=== PATIENT | male | born 1945 | race Caucasian/White ===

== ENCOUNTER 2018-02-10 11:36 | Inpatient (IN) | payer OTHER ==
[~2018-02-10] VITALS: Ht 182.9 cm; Wt 77.1 kg
[2018-02-10] MEDS ORDERED: SODIUM CHLORIDE 0.9% 1000ML 1,000 ML IV STA (11:58)
[2018-02-10] MEDS ORDERED: SODIUM CHLORIDE 0.9% 500ML 500 ML IV STA (11:58)
[2018-02-10] MEDS ORDERED: METOPROLOL TARTRATE INJ 1 MG/ML VIAL ONE (11:58)
[2018-02-10] MEDS ORDERED: SODIUM CHLORIDE 0.9% 500ML 500 ML ONE (11:58)
[2018-02-10] MEDS ORDERED: METOPROLOL TARTRATE INJ 1 MG/ML VIAL IV ONE (12:00)
[2018-02-10] MEDS ORDERED: ASPIRIN 81 MG CHEW TAB PO ONE ×3 (12:00→16:15)
[2018-02-10 12:21] LABS: BASOPHILS % 0.5 % (0.0-1.0); EOSINOPHILS # (AUTO) 0.1 (0.0-0.4); EOSINOPHILS % 0.8 % (0.0-6.0); HEMATOCRIT 39.9 % (38.2-49.6); HEMOGLOBIN 13.1 g/dL (14.0-18.0); LYMPHOCYTES # (AUTO) 1.3 (1.0-3.2); LYMPHOCYTES % 16.7 % (18.0-39.1); MEAN CORPUSCULAR HEMOGLOBIN 30.5 pg (28-32); MEAN CORPUSCULAR HGB CONC 32.8 g/dL (31-35); MEAN CORPUSCULAR VOLUME 92.8 fL (81-99); MONOCYTES # (AUTO) 0.6 (0.2-0.8); MONOCYTES % 7.5 % (4.4-11.3); NEUTROPHILS # (AUTO) 5.7 (2.1-6.9); NEUTROPHILS % 74.4 % (38.7-80.0); PLATELET COUNT 138 x10e3/uL (140-360); RED CELL DISTRIBUTION WIDTH 14.9 % (11.7-14.4)
[2018-02-10 12:25] LABS: INR 1.34; PROTHROMBIN TIME 15.6 seconds (11.9-14.5)
[2018-02-10 12:26] LABS: PARTIAL THROMBOPLASTIN TIME 28.9 seconds (23.8-35.5)
[2018-02-10 12:35] LABS: ALANINE AMINOTRANSFERASE 22 IU/L (0-55); ALBUMIN 4.2 g/dL (3.5-5.0); ALBUMIN/GLOBULIN RATIO 1.4 (0.8-2.0); ALKALINE PHOSPHATASE 88 IU/L (40-150); ANION GAP 16.3 mmol/L (8-16); BLOOD UREA NITROGEN 18 mg/dL (7-26); BUN/CREATININE RATIO 16 (6-25); CALCIUM 9.3 mg/dL (8.4-10.2); CARBON DIOXIDE 19 mmol/L (22-29); CHLORIDE 106 mmol/L (98-107); CREATINE KINASE 49 IU/L (30-200); EST GLOMERULAR FILTRATION RATE > 60 ML/MIN (60-); GLUCOSE 136 mg/dL (74-118); MAGNESIUM 1.7 MG/DL (1.3-2.1); POTASSIUM 4.3 mmol/L (3.5-5.1); SODIUM 137 mmol/L (136-145)
--- NOTE | 2018-02-10 12:42 | Diagnostic Imaging Report ---
PROCEDURE: CHEST SINGLE (PORTABLE) COMPARISON: CTA abdomen pelvis and lower extremities 12/05/2016. INDICATIONS: CHEST PAIN FINDINGS: Lungs are well-inflated. Left lower lobe patchy opacity and adjacent pleural thickening shown to represent atelectatic changes on the comparison CTA. No consolidation or pneumothorax. Postsurgical changes in the mediastinum with multiple intact sternotomy wires. Atherosclerotic calcification and tortuosity of the thoracic aorta. Normal heart size. No overt pulmonary edema. CONCLUSION: No acute cardiopulmonary abnormality. Dictated by: Pablo Velasco M.D. on 02/10/2018 at 12:46 Electronically approved by: Pablo Velasco M.D. on 02/10/2018 at 12:46
[2018-02-10 12:55] LABS: THYROID STIMULATING HORMONE 12.752 uIU/mL (0.350-4.940)
[2018-02-10] MEDS ORDERED: METOPROLOL TARTRATE 25 MG TAB PO SCH (15:00)
[2018-02-10] MEDS ORDERED: SODIUM CHLORIDE FLUSH 10 ML SYR INJ PRN (15:00)
[2018-02-10] MEDS ORDERED: PANTOPRAZOLE SO40 MG PO (15:36)
[2018-02-10] MEDS ORDERED: LEVOTHYROXINE100 MC1 PO (15:36)
[2018-02-10] MEDS ORDERED: FLOMAX0.4 MG PO (15:36)
[2018-02-10] MEDS ORDERED: METFORMIN HCL500 MG PO (15:36)
[2018-02-10] MEDS ORDERED: CILOSTAZOL100 MG PO (15:36)
[2018-02-10] MEDS ORDERED: LIPITOR20 MG (15:36)
[2018-02-10] MEDS ORDERED: PLAVIX75 MG PO (15:36)
[2018-02-10] MEDS ORDERED: LISINOPRIL2.5 MG PO (15:36)
[2018-02-10] MEDS ORDERED: METOPROLOL TARTRATE INJ 1 MG/ML VIAL IV PRN (15:45)
[2018-02-10 16:17] VITALS: BP 99/80
[2018-02-10 16:22] VITALS: BP 99/80
[2018-02-10 16:26] VITALS: BP 99/80
[2018-02-10] MEDS ORDERED: AMIODARONE HCL 150 MG in DEXTROSE 5% 100ML 100 ML IV ONE (16:30)
[2018-02-10 16:32] LABS: CHOL/HDL RATIO 2.8 (3.9-4.7)
[2018-02-10] MEDS: AMIODARONE HCL 900 MG in DEXTROSE 5 % 500ML BOTTLE 482 ML IV SCH (16:33)
[2018-02-10] MEDS: METOPROLOL TARTRATE 25 MG TAB PO SCH ×2 (16:33→23:50)
[2018-02-10] MEDS: ENOXAPARIN SOD INJ 60 MG/0.6 ML SYR SC SCH (16:55)
[2018-02-10 20:07] VITALS: BP 99/78
[2018-02-10 20:57] LABS: CREATINE KINASE MB 1.5 ng/mL (0-5.0)
[2018-02-10 21:00] VITALS: BP 99/78
--- NOTE | 2018-02-10 21:12 | Diagnostic Imaging Report ---
EXAM: CT Chest WITH contrast (PE Protocol) INDICATION: \S\R/O PE \[id number] \S\2015 COMPARISON: Chest CT dated 10/18/2009 TECHNIQUE: Chest was scanned utilizing a multidetector helical scanner from the lung apex through the level of the diaphragm after administration of IV contrast. Thin section reconstructions were obtained with special concentration on the pulmonary arteries. Coronal and sagittal reformations were obtained. Pulmonary embolism protocol was performed. IV CONTRAST: 100 mL of Isovue 300 COMPLICATIONS: None RADIATION DOSE: Total DLP: 615.62 mGy*cm Estimated effective dose: (DLP x 0.014 x size factor) mSv CTDIvol has been reviewed. It is below the limits set by the Radiation Protocol Committee (RPC). FINDINGS: LINES/ TUBES: None. LUNGS AND AIRWAYS: No filling defect is identified within the pulmonary arteries to the segmental level. Evaluation of the lungs are limited by motion artifact. Mild biapical emphysematous and bullous changes. Pulmonary vascular congestion and mild interstitial edema. Bibasilar linear atelectasis/scarring. Left lower lobe consolidation. Airways are normal. PLEURA: Small bilateral pleural effusions, right greater than left. The left pleural effusion appears slightly loculated such as in series 2, images 39 and 58(along the fissure). HEART AND MEDIASTINUM: The thyroid gland is normal. Numerous subcentimeter mediastinal lymph nodes, the largest measuring 1.1 cm in the subcarinal region. Bilateral hilar adenopathy, measuring up to 1.6 cm on the right side. No axillary lymphadenopathy. The heart is mildly enlarged. There is no pericardial effusion. Severe atherosclerotic calcification of coronary arteries. Median sternotomy wires.. Main pulmonary artery measures 3.4 cm in diameter, suggestive of pulmonary hypertension. Reflux of contrast to the IVC and hepatic veins, suggestive of right heart insufficiency. UPPER ABDOMEN: Unremarkable BONES: No acute osseous abnormality. Median sternotomy wires. SOFT TISSUES: Unremarkable. IMPRESSION: 1. No pulmonary emboli. 2. Cardiomegaly, pulmonary vascular congestion, mild interstitial edema, and bilateral pleural effusions which might be slightly loculated on the left side 3. Mild upper lobe predominant emphysematous changes. 4. Left lower lobe consolidation, representing atelectasis and/or pneumonia in the appropriate clinical setting. Signed by: Dr. Colin Nguyen MD on 02/10/2018 9:09 PM
[2018-02-10] MEDS ORDERED: SODIUM CHLORIDE 0.9% 50ML 50 ML ONE (21:19)
[2018-02-10] MEDS ORDERED: IOPAMIDOL 370 MG/ML 200 ML INFUS..BTL INJ ONE (21:19)
[2018-02-10 23:50] VITALS: BP 93/71
[2018-02-11] VITALS (9 sets, daily range): BP systolic 88–116; BP diastolic 63–83
[2018-02-11] MEDS: METOPROLOL TARTRATE 25 MG TAB PO SCH ×3 (05:09→17:24)
[2018-02-11 06:10] LABS: BASOPHILS % 0.4 % (0.0-1.0); EOSINOPHILS # (AUTO) 0.1 (0.0-0.4); EOSINOPHILS % 0.6 % (0.0-6.0); HEMATOCRIT 37.7 % (38.2-49.6); HEMOGLOBIN 12.2 g/dL (14.0-18.0); LYMPHOCYTES # (AUTO) 1.1 (1.0-3.2); LYMPHOCYTES % 11.9 % (18.0-39.1); MEAN CORPUSCULAR HEMOGLOBIN 30.7 pg (28-32); MEAN CORPUSCULAR HGB CONC 32.4 g/dL (31-35); MONOCYTES # (AUTO) 0.7 (0.2-0.8); NEUTROPHILS # (AUTO) 7.2 (2.1-6.9); NEUTROPHILS % 78.8 % (38.7-80.0); PLATELET COUNT 132 x10e3/uL (140-360); RED BLOOD COUNT 3.97 x10e6/uL (4.3-5.7); RED CELL DISTRIBUTION WIDTH 14.8 % (11.7-14.4)
[2018-02-11 06:34] LABS: ALANINE AMINOTRANSFERASE 46 IU/L (0-55); ALBUMIN 3.6 g/dL (3.5-5.0); ALBUMIN/GLOBULIN RATIO 1.3 (0.8-2.0); ALKALINE PHOSPHATASE 89 IU/L (40-150); ANION GAP 14.6 mmol/L (8-16); BLOOD UREA NITROGEN 22 mg/dL (7-26); BUN/CREATININE RATIO 19 (6-25); CARBON DIOXIDE 21 mmol/L (22-29); CHLORIDE 107 mmol/L (98-107); CHOLESTEROL 109 MD/DL (0-199); CREATINE KINASE 46 IU/L (30-200); CREATININE, SERUM 1.14 mg/dL (0.72-1.25); EST GLOMERULAR FILTRATION RATE > 60 ML/MIN (60-); GLUCOSE 117 mg/dL (74-118); HDL CHOLESTEROL 36 MG/DL (40-60); LDL CHOLESTEROL 60 MG/DL (60-130); SODIUM 137 mmol/L (136-145); TRIGLYCERIDES 63 MG/DL (0-149)
[2018-02-11 06:35] LABS: POTASSIUM 5.6 mmol/L (3.5-5.1)
[2018-02-11] MEDS: ENOXAPARIN SOD INJ 60 MG/0.6 ML SYR SC SCH ×3 (07:56→20:39)
--- NOTE | 2018-02-11 08:49 | Consultation ---
DATE OF CONSULTATION: February 10, 2018 CARDIOLOGY CONSULTATION REQUESTING PHYSICIAN: Dr. Flores. REASON FOR CONSULTATION: Tachycardia. HPI: This is a 72-year-old male with history of CAD that presented with palpitations. According to the patient, he was resting and suddenly he started feeling a pounding heart accompanied with weakness. He said it started the day before yesterday and is still going on, that he decided to come into the emergency room for evaluation. In the ER, he was found to be in A-flutter, and cardiology was consulted. He had open heart surgery in the past. He was in A-flutter and received cardioversion. He smokes daily. He denies any dizziness, any headache or nausea. PAST MEDICAL HISTORY: CAD, hypertension, diabetes, hypothyroidism, diverticulosis, constipation, BPH, PAD and pulmonary nodules. PAST SURGICAL HISTORY: CABG. FAMILY HISTORY: Positive for hypertension. SOCIAL HISTORY: He smokes 1 pack of cigarettes daily and lives at home with the . MEDICATIONS: See med list. ALLERGIES: HE IS NOT ALLERGIC TO ANY MEDICATION. REVIEW OF SYSTEMS: Negative, except those mentioned above. PHYSICAL EXAMINATION VITAL SIGNS: Temperature 97, heart rate 117, blood pressure 95/63, respirations 20. Oxygen saturation 100% on 2 liters nasal cannula. GENERAL: He is awake, alert and oriented times 3. HEENT: Mucous membranes moist. NECK: Supple. LUNGS: Bilaterally clear to auscultation. CARDIOVASCULAR: Irregular. ABDOMEN: Soft. NEUROLOGIC: Intact. EXTREMITIES: No edema. LABORATORY DATA: Sodium 137, potassium 4.7, chloride 107, CO2 21, BUN 22, creatinine 1.14. Glucose 117. White blood cells 9.08, hemoglobin 12.2, hematocrit 37.7, platelets 132. PT 15.6, PTT 28.9, INR 1.34. IMPRESSION 1. Atrial flutter. 2. Chest pain with palpitations. 3. Hypotension. 4. Diabetes. 5. Coronary artery disease with coronary artery bypass graft. 6. Chronic obstructive pulmonary disease. 7. Tobacco abuse. ASSESSMENT AND PLAN: Will go ahead and get serial cardiac enzymes. Get an echocardiogram. Get a CT chest to rule out PE. Put him on metoprolol. Will continue amiodarone drip. Put him on Lovenox 1 mg/kg q.12 h. He has been counseled on tobacco cessation. Further cardiac workup pending clinical course. Thank you for this consultation. Job#: [id number] TARAH
[2018-02-11] MEDS: TAMSULOSIN HCL 0.4 MG CAP PO SCH (09:00)
[2018-02-11] MEDS: PANTOPRAZOLE SOD 40 MG TABEC PO SCH (09:00)
[2018-02-11] MEDS: CILOSTAZOL 100 MG TAB PO SCH ×2 (09:00→16:34)
[2018-02-11] MEDS: CLOPIDOGREL BISULFATE 75 MG TAB PO SCH (09:00)
[2018-02-11] MEDS ORDERED: ATORVASTATIN 20 MG TAB PO SCH (09:00)
[2018-02-11] MEDS: LEVOTHYROXINE SODIUM 100 MCG/VIAL IV SCH (09:48)
[2018-02-11] MEDS ORDERED: BENZOCAINE 20% SPR 60 ML CAN ONE (09:55)
--- NOTE | 2018-02-11 09:55 | History and Physical ---
PRIMARY CARE PROVIDER: Dr. Hilton Dill ENGINEERING RECRUITER: Dr. Kyle Mendieta CHIEF COMPLAINT: Atrial flutter. HISTORY: Patient is a 72-year-old male with new-onset atrial flutter. The patient came in with palpitations. He is stable at this time. He is pending for PRISCA and cardioversion. The patient has a history of CAD. He also is a smoker. The patient had no chest pain this time. Cardiac enzymes negative. PAST MEDICAL HISTORY: CAD, hypertension, diabetes, type 2, hypothyroidism, diverticulosis, constipation, enlarged prostate, peripheral vascular disease, history of pulmonary nodule. PAST SURGICAL HISTORY: Coronary artery bypass surgery. SOCIAL HISTORY: Patient does smoke. He denied alcohol use. No regular drugs. FAMILY HISTORY: Coronary artery disease and hypertension. MEDICATIONS: List is reviewed. ALLERGIES: NO KNOWN ALLERGIES. PHYSICAL EXAMINATION VITAL SIGNS: Temperature is 97, blood pressure 95/53, pulse rate 83, respirations 20. GENERAL: The patient is not in acute distress. HEENT: Normocephalic and atraumatic. Pupils reactive and anicteric. NECK: Supple grossly. PULMONARY: Diminished breath sounds bilaterally. CARDIOVASCULAR: Atrial flutter and atrial tachycardia. ABDOMEN: Soft and nontender. No distention. EXTREMITIES: No cyanosis or edema. NEUROLOGIC: No focal deficit. LABORATORY: Sodium is 137, potassium 4.7, chloride 107, bicarb 21, BUN 22, creatinine 1.1, glucose is 117. WBC is 9, hemoglobin 12.2, hematocrit 37.7, and platelets are 132,000. INR is 1.34. IMPRESSION 1. Atrial flutter associated with fluid overload and increasing palpitations. 2. History of coronary artery disease with previous bypass surgery. 3. Heavy smoker. PLAN: Cardioversion with PRISCA. Continue with rate control medication of amiodarone and metoprolol. PRISCA with cardioversion pending. Home medication list will be reviewed. Check TSH. Job#: [id number] HOANG
[2018-02-11] MEDS ORDERED: SODIUM CHLORIDE 0.9% 50ML 50 ML ONE (11:27)
[2018-02-11] MEDS ORDERED: DIGOXIN INJ 0.25 MG/ML 2 ML AMP IV ONE (13:30)
[2018-02-11] MEDS ORDERED: PROPOFOL IV EMULSION 10 MG/ML 20 ML VIAL ONE (16:24)
[2018-02-11] MEDS ORDERED: PHENYLEPHRINE HCL 1% 10 MG/ML VIAL ONE (16:24)
[2018-02-11] MEDS: AMIODARONE HCL 900 MG in DEXTROSE 5 % 500ML BOTTLE 482 ML IV SCH (17:00)
[2018-02-11] MEDS: AMIODARONE HCL 200 MG TAB PO SCH (17:24)
[2018-02-11] MEDS: ATORVASTATIN 20 MG TAB PO SCH (20:39)
[2018-02-12 00:03] VITALS: BP 102/64
[2018-02-12 04:12] VITALS: BP 96/69
[2018-02-12] MEDS: METOPROLOL TARTRATE 25 MG TAB PO SCH ×4 (05:51→17:01)
[2018-02-12 08:00] VITALS: BP 96/69
[2018-02-12] MEDS: TAMSULOSIN HCL 0.4 MG CAP PO SCH (08:00)
[2018-02-12] MEDS: PANTOPRAZOLE SOD 40 MG TABEC PO SCH (08:00)
[2018-02-12] MEDS: CILOSTAZOL 100 MG TAB PO SCH ×2 (08:00→16:36)
[2018-02-12] MEDS: CLOPIDOGREL BISULFATE 75 MG TAB PO SCH (08:00)
[2018-02-12] MEDS: AMIODARONE HCL 200 MG TAB PO SCH (08:00)
[2018-02-12] MEDS: ENOXAPARIN SOD INJ 60 MG/0.6 ML SYR SC SCH ×2 (08:00→20:43)
[2018-02-12] MEDS: LEVOTHYROXINE SODIUM 100 MCG/VIAL IV SCH (10:00)
[2018-02-12 11:30] VITALS: BP 98/67
[2018-02-12 16:00] VITALS: BP 109/73
[2018-02-12 19:30] VITALS: BP 84/63
[2018-02-12] MEDS: ATORVASTATIN 20 MG TAB PO SCH (20:43)
--- NOTE | 2018-02-13 14:07 | Operative Report ---
DATE OF PROCEDURE: February 11, 2018 PROCEDURE: Synchronized cardioversion. INDICATIONS: Atrial flutter. DESCRIPTION OF PROCEDURE: After informed consent, patient was brought to the endoscopy suite and placed on the table. He underwent transesophageal echocardiogram without any complications. No thrombus was noted. Paddles were placed on patient's chest. Patient was cardioverted by synchronized cardioversion at 75 joules. Patient converted to a sinus rhythm. Patient tolerated the procedure without any complications. He was anesthetized by the anesthesiologist prior to the start of the procedure. Job#: [id number] EV
== END 2018-02-12 22:45 | disposition short-term general hospital (02) | DRG 309 ==
LOC: ER 11:36 → ERHOLD 15:15 → IMCU 16:03
PROVIDERS: ADMIT Internal Medicine; ATTEND Internal Medicine
PROC: 5A2204Z Restoration of Cardiac Rhythm, Single (ICD-10-PCS; principal; 2018-02-11)
DX: I48.92 Unspecified atrial flutter (principal); I50.22 Chronic systolic (congestive) heart failure; E87.70 Fluid overload, unspecified; I25.10 Atherosclerotic heart disease of native coronary artery without angina pectoris; F17.210 Nicotine dependence, cigarettes, uncomplicated; Z95.1 Presence of aortocoronary bypass graft; J44.9 Chronic obstructive pulmonary disease, unspecified; I95.9 Hypotension, unspecified; I11.0 Hypertensive heart disease with heart failure; I73.9 Peripheral vascular disease, unspecified; N40.0 Benign prostatic hyperplasia without lower urinary tract symptoms; I35.0 Nonrheumatic aortic (valve) stenosis; E03.9 Hypothyroidism, unspecified
CPT/HCPCS: 36415; 71045; 71260; 80053; 80061; 82550; 82553; 83735; 83880; 84132; 84443; 84484; 85025; 85610; 85730; 93005; 93306; 93307; 93312; 93325; 96360; 99284; J1160; J1650; J2370; J7030; J7040; Q9967

== ENCOUNTER 2018-03-02 08:51 | Emergency (ER) | payer OTHER ==
[~2018-03-02] VITALS: Ht 182.9 cm; Wt 77.1 kg
[~2018-03-02 08:51] MED LIST: CILOSTAZOL100 MG PO; FLOMAX0.4 MG PO; LEVOTHYROXINE100 MC1 PO; LIPITOR20 MG; LISINOPRIL2.5 MG PO; METFORMIN HCL500 MG PO; PANTOPRAZOLE SO40 MG PO; PLAVIX75 MG PO
[2018-03-02] MEDS ORDERED: ONDANSETRON HCL INJ 2 MG/ML VIAL IV STA (09:42)
[2018-03-02] MEDS ORDERED: HYDROMORPHONE 1MG/1ML INJ IV STA (09:42)
[2018-03-02] MEDS ORDERED: HEPARIN SOD (PORCINE) 5,000 UNIT/ML VIAL IV ONE (09:45)
[2018-03-02] MEDS ORDERED: LASIX40 MG PO (09:51)
[2018-03-02] MEDS ORDERED: TIZANIDINE HCL4 MG PO (09:51)
[2018-03-02] MEDS ORDERED: PROAIR HFA INH8.5 GM INH (09:51)
[2018-03-02] MEDS ORDERED: BREO INH (09:51)
[2018-03-02] MEDS ORDERED: MONTELUKAST SOD10 MG PO (09:51)
[2018-03-02] MEDS ORDERED: LEVOTHYROXINE100 MCG PO (09:51)
[2018-03-02] MEDS ORDERED: GABAPENTIN100 MG PO (09:51)
[2018-03-02] MEDS ORDERED: ASPIRIN EC81 MG PO (09:51)
[2018-03-02 09:54] LABS: BASOPHILS # (AUTO) 0.1 (0.0-0.1); BASOPHILS % 0.3 % (0.0-1.0); EOSINOPHILS # (AUTO) 0.1 (0.0-0.4); EOSINOPHILS % 0.8 % (0.0-6.0); HEMATOCRIT 28.2 % (38.2-49.6); HEMOGLOBIN 9.4 g/dL (14.0-18.0); LYMPHOCYTES # (AUTO) 0.8 (1.0-3.2); LYMPHOCYTES % 5.6 % (18.0-39.1); MEAN CORPUSCULAR HEMOGLOBIN 30.3 pg (28-32); MEAN CORPUSCULAR HGB CONC 33.3 g/dL (31-35); MONOCYTES # (AUTO) 1.1 (0.2-0.8); MONOCYTES % 7.3 % (4.4-11.3); NEUTROPHILS # (AUTO) 12.6 (2.1-6.9); NEUTROPHILS % 85.4 % (38.7-80.0); PLATELET COUNT 255 x10e3/uL (140-360); RED CELL DISTRIBUTION WIDTH 14.7 % (11.7-14.4)
[2018-03-02 09:59] LABS: INR 1.36; PROTHROMBIN TIME 15.8 seconds (11.9-14.5)
[2018-03-02 10:00] LABS: PARTIAL THROMBOPLASTIN TIME 35.1 seconds (23.8-35.5)
[2018-03-02 10:06] LABS: ALANINE AMINOTRANSFERASE 55 IU/L (0-55); ALBUMIN 2.8 g/dL (3.5-5.0); ALBUMIN/GLOBULIN RATIO 0.8 (0.8-2.0); ALKALINE PHOSPHATASE 163 IU/L (40-150); ANION GAP 14.7 mmol/L (8-16); BLOOD UREA NITROGEN 17 mg/dL (7-26); BUN/CREATININE RATIO 22 (6-25); CALCIUM 8.8 mg/dL (8.4-10.2); CARBON DIOXIDE 25 mmol/L (22-29); CHLORIDE 99 mmol/L (98-107); CREATINE KINASE 720 IU/L (30-200); CREATININE, SERUM 0.78 mg/dL (0.72-1.25); EST GLOMERULAR FILTRATION RATE > 60 ML/MIN (60-); GLUCOSE 136 mg/dL (74-118); POTASSIUM 3.7 mmol/L (3.5-5.1); SODIUM 135 mmol/L (136-145)
--- NOTE | 2018-03-02 10:44 | Diagnostic Imaging Report ---
PROCEDURE: A single AP view of the chest. COMPARISON: 02/10/18 INDICATIONS: LEFT LOWER EXTREMITY SWELLING FINDINGS: Lines/tubes: None. Lungs: The lungs are well inflated. There is no evidence of pneumonia or pulmonary edema. Tiny right lower lung field nodular density, likely a calcified granuloma. Pleura: There is no significant pleural effusion or pneumothorax. Heart and mediastinum: The heart and the mediastinum are unremarkable. Unchanged prominence of the bilateral hilar region. Median sternotomy wires are again seen. Bones: No acute bony abnormality. IMPRESSION: Unchanged prominence of the hilar regions, could represent central vascular congestion. Otherwise unremarkable exam. Dictated by: Colin Nguyen M.D. on 03/02/2018 at 10:48 Electronically approved by: Colin Nguyen M.D. on 03/02/2018 at 10:48
[2018-03-02] MEDS ORDERED: HEPARIN 25,000U/0.45% NS 250ML 1,400 UNIT in SODIUM CHLORIDE 0.9% 250ML 0 ML IV SCH (10:45)
[2018-03-02 11:22] VITALS: BP 128/74
== END 2018-03-02 11:46 | disposition short-term general hospital (02) ==
LOC: ER 08:51
DX: M79.605 Pain in left leg (principal); I70.345 Atherosclerosis of unspecified type of bypass graft(s) of the left leg with ulceration of other part of foot; I70.6 Atherosclerosis of nonbiological bypass graft(s) of the extremities; I99.8 Other disorder of circulatory system
CPT/HCPCS: 36415; 71045; 80053; 82550; 82553; 83605; 83880; 84484; 85025; 85610; 85730; 93005; 99284; J1170; J1644 ×2; J2405; J7050